=== PATIENT | female | born 1960 | race African-American/Black ===

== ENCOUNTER 2021-07-10 08:00 | Day surgery (SDC) | payer MEDICARE, MEDICAID, OTHER ==
[2021-07-10] MEDS ORDERED: Lidocaine 1% PF 5 ML VIAL ONE (08:36)
[2021-07-10] MEDS ORDERED: Sodium Bicarbonate 2.5 MEQ/5 ML VIAL ONE (08:37)
[2021-07-10 08:40] VITALS: BP 144/71
== END 2021-07-10 11:45 | disposition home or self-care (01) ==
LOC: CSHRAD 08:00
PROVIDERS: ATTEND Family Medicine
DX: G89.4 Chronic pain syndrome (principal); M96.1 Postlaminectomy syndrome, not elsewhere classified; M54.16 Radiculopathy, lumbar region; M51.9 Unspecified thoracic, thoracolumbar and lumbosacral intervertebral disc disorder
CPT/HCPCS: 62304; 72100; 72132

== ENCOUNTER 2021-11-18 11:27 | Outpatient (CLI) | payer MEDICARE, MEDICAID | END 2021-11-18 11:28 | disposition home or self-care (01) | LOC: CSHRAD 11:27 | PROVIDERS: ATTEND Neurological Surgery | DX: M48.061 Spinal stenosis, lumbar region without neurogenic claudication (principal); Z98.890 Other specified postprocedural states; M51.36 Other intervertebral disc degeneration, lumbar region | CPT/HCPCS: 72100 ==

== ENCOUNTER 2022-03-22 18:27 | Inpatient (IN) | payer MEDICARE, MEDICAID ==
[2022-03-22] MEDS ORDERED: Magnesium 2 GM/50 ML BAG (IN WATER) ONE (19:12)
[2022-03-22] MEDS ORDERED: methylPREDNISolone Sod Succ/PF 125 MG/2 ML VIAL ONE (19:12)
[2022-03-22 19:21] LABS: #Basophils 0.1 10x3/uL (0.0-0.2); #Eosinphils 0.4 10x3/uL (0.0-0.5); #Monocytes 0.9 10x3/uL (0.0-1.1); #Neutrophils 5.3 10x3/uL (1.5-8.4); %Basophils 0.6 % (0.0-2.0); %Eosinophils 4.7 % (0.0-6.0); %Lymphocytes 23.9 % (18.0-47.0); %Monocytes 10.5 % (0.0-10.0); %Neutrophils 59.7 % (40.0-75.0); Hemoglobin 11.7 g/dL (12.0-15.5); Mean Corpuscular HGB CONC 32.9 g/dL (32.0-36.0); Mean Corpuscular Hemoglobin 26.1 pg (27.0-33.0); Mean Corpuscular Volume 79.3 fl (81.6-98.3); Mean Platelet Volume 10.6 fl (7.4-10.4); Platelet Count 271 10x3/uL (150-450); RBC Distribution Width 16.4 % (11.5-14.5); Red Blood Cell (RBC) Count 4.49 10x6/uL (3.90-5.03); White Blood Cell (WBC) Count 8.8 10x3/uL (3.5-10.5)
[2022-03-22 19:31] LABS: ALT (SGPT) 15 U/L (8-55); AST (SGOT) 19 U/L (5-34); Alkaline Phosphatase 106 U/L (40-110); Anion Gap 14 mmol/L (10-20); BUN (Urea Nitrogen) 13 mg/dL (9.8-20.1); Bilirubin, Total 0.3 mg/dL (0.2-1.2); Calc. Creatinine Clearance 0 mL/min (70-130); Calcium 9.5 mg/dL (7.8-10.44); Carbon Dioxide 24 mmol/L (23-31); Chloride 105 mmol/L (98-107); Globulin 2.8 g/dL (2.4-3.5); Glucose 97 mg/dL (80-115); Potassium 3.6 mmol/L (3.5-5.1); Protein, Total 6.8 g/dL (5.8-8.1); Sodium 139 mmol/L (136-145)
[2022-03-22] MEDS ORDERED: Acetaminophen 500 MG TAB ONE (20:05)
[2022-03-22 20:58] LABS: SARS-CoV-2 NAA Rapid Test Not Detected (NotDetected)
[2022-03-22] MEDS ORDERED: Albuterol Sulfate 2.5 mg/3 ml Neb ONE (21:15)
[2022-03-22] MEDS ORDERED: Guaifenesin DM 100-10/5 ML UDCUP PO PRN (21:33)
[2022-03-22] MEDS ORDERED: Ondansetron PF 4 MG/2 ML Vial IVP PRN (21:33)
[2022-03-22] MEDS ORDERED: Acetaminophen 325 MG TAB PO PRN (21:33)
[2022-03-22] MEDS ORDERED: Calcium Carbonate 500 MG ChewTAB PO PRN (21:33)
[2022-03-22] MEDS ORDERED: Lisinopril 10 MG TAB PO SCH (21:45)
[2022-03-22] MEDS ORDERED: Potassium Chloride 20 MEQ TAB PO SCH (21:45)
[2022-03-22] MEDS: traMADol HCl 50 MG TAB PO PRN (23:50)
[2022-03-22] MEDS: Azithromycin 500 MG in Sodium Chloride 0.9% 250 ML 250 ML IVPB SCH (23:51)
[2022-03-23 00:59] VITALS: BMI 25.7
[2022-03-23] MEDS ORDERED: TYLENOL #4 PATIENT'S HOME MEDICATION PO PRN (01:40)
[2022-03-23] MEDS ORDERED: tiZANidine HCl 4 MG TAB PO PRN (01:41)
[2022-03-23] MEDS: methylPREDNISolone Sod Succ/PF 125 MG/2 ML VIAL IVP SCH ×4 (03:31→20:11)
[2022-03-23] MEDS: Acetaminophen/Codeine 30-300mg Tablet PO PRN ×2 (03:32→14:56)
[2022-03-23 05:15] LABS: Anion Gap 16 mmol/L (10-20); BUN (Urea Nitrogen) 15 mg/dL (9.8-20.1); Calc. Creatinine Clearance 60 mL/min (70-130); Calcium 9.4 mg/dL (7.8-10.44); Carbon Dioxide 21 mmol/L (23-31); Chloride 106 mmol/L (98-107); Glucose 151 mg/dL (80-115); Potassium 4.3 mmol/L (3.5-5.1); Sodium 139 mmol/L (136-145)
[2022-03-23] MEDS ORDERED: Dextrose 5% in Water 1,000 ML IV PRN (07:51)
[2022-03-23] MEDS ORDERED: Dextrose 50% Abboject 50 ML SYRINGE SLOW IVP PRN (07:51)
[2022-03-23] MEDS ORDERED: HumaLOG 300 UNITS/3 ML VIAL SC PRN (07:51)
[2022-03-23] MEDS: Mometasone/Formoterol 200/5 60 PUFF INH SCH ×2 (08:43→18:42)
[2022-03-23] MEDS ORDERED: Aripiprazole 2 MG TAB PO SCH (09:00)
[2022-03-23] MEDS: traMADol HCl 50 MG TAB PO PRN ×2 (09:40→20:09)
[2022-03-23] MEDS: Gabapentin 300 MG CAP PO SCH ×2 (09:40→20:11)
[2022-03-23] MEDS: Enoxaparin Sodium 40 MG/0.4 ML SYRINGE SC SCH (09:40)
[2022-03-23] MEDS: Amlodipine 5 MG TAB PO SCH (09:41)
[2022-03-23] MEDS: cloNIDine 0.1 MG TAB PO SCH ×2 (09:41→20:11)
[2022-03-23] MEDS: Benzonatate 100 MG CAP PO SCH ×3 (09:41→20:10)
[2022-03-23] MEDS: guaiFENesin ER 600 MG TAB PO SCH ×2 (09:41→20:10)
[2022-03-23] MEDS: Famotidine 20 MG TAB PO SCH ×2 (09:41→20:22)
[2022-03-23] MEDS: Multivitamin W/ Minerals 1 TAB PO SCH (09:41)
[2022-03-23] MEDS: Lisinopril 10 MG TAB PO SCH (09:42)
[2022-03-23] MEDS: Bupropion 100 MG SR TAB PO SCH (09:42)
[2022-03-23] MEDS: HumaLOG 300 UNITS/3 ML VIAL SC PRN (17:20)
[2022-03-23] MEDS: Aripiprazole 2 MG TAB PO SCH (20:10)
[2022-03-23] MEDS: HYDROcodone/Acetaminophen 5/325 mg Tablet PO PRN (20:53)
[2022-03-23] MEDS: buPROPion HCl 100 MG TAB PO SCH (20:53)
[2022-03-23] MEDS: tiZANidine HCl 4 MG TAB PO PRN (20:54)
[2022-03-23] MEDS: Azithromycin 500 MG in Sodium Chloride 0.9% 250 ML 250 ML IVPB SCH (21:35)
[2022-03-24] MEDS: methylPREDNISolone Sod Succ/PF 125 MG/2 ML VIAL IVP SCH ×4 (03:50→20:32)
[2022-03-24] MEDS: HYDROcodone/Acetaminophen 5/325 mg Tablet PO PRN ×2 (04:04→20:31)
[2022-03-24 05:04] LABS: Hemoglobin 11.1 g/dL (12.0-15.5); Mean Corpuscular HGB CONC 33.4 g/dL (32.0-36.0); Mean Corpuscular Hemoglobin 26.4 pg (27.0-33.0); Mean Corpuscular Volume 78.9 fl (81.6-98.3); Mean Platelet Volume 11.3 fl (7.4-10.4); Platelet Count 289 10x3/uL (150-450); RBC Distribution Width 16.8 % (11.5-14.5); Red Blood Cell (RBC) Count 4.21 10x6/uL (3.90-5.03); White Blood Cell (WBC) Count 21.7 10x3/uL (3.5-10.5)
[2022-03-24 05:11] LABS: Anion Gap 19 mmol/L (10-20); BUN (Urea Nitrogen) 20 mg/dL (9.8-20.1); Calc. Creatinine Clearance 57 mL/min (70-130); Calcium 9.3 mg/dL (7.8-10.44); Carbon Dioxide 20 mmol/L (23-31); Chloride 107 mmol/L (98-107); Glucose 155 mg/dL (80-115); Potassium 4.6 mmol/L (3.5-5.1); Sodium 141 mmol/L (136-145)
[2022-03-24 05:38] LABS: MDiff Complete? YES
[2022-03-24 05:41] LABS: Band 17 % (5-11); Eosinophils 1 % (0-10); Lymphocytes 6 % (21-51); Monocytes 1 % (0-10)
[2022-03-24 05:42] LABS: Platelet Morphology Comment Appears Adequate; RBC Morphology Normal
[2022-03-24 06:19] LABS: Neutrophil 75 % (42-75)
[2022-03-24] MEDS: Mometasone/Formoterol 200/5 60 PUFF INH SCH ×2 (06:54→19:05)
[2022-03-24] MEDS: Senokot S 8.6-50 MG TAB PO PRN ×2 (08:33→21:15)
[2022-03-24] MEDS: Multivitamin W/ Minerals 1 TAB PO SCH (08:33)
[2022-03-24] MEDS: Famotidine 20 MG TAB PO SCH (08:33)
[2022-03-24] MEDS: traMADol HCl 50 MG TAB PO PRN (08:33)
[2022-03-24] MEDS: tiZANidine HCl 4 MG TAB PO PRN (08:33)
[2022-03-24] MEDS: cloNIDine 0.1 MG TAB PO SCH ×2 (08:34→21:15)
[2022-03-24] MEDS: Lisinopril 10 MG TAB PO SCH (08:34)
[2022-03-24] MEDS: Amlodipine 5 MG TAB PO SCH (08:34)
[2022-03-24] MEDS: Benzonatate 100 MG CAP PO SCH ×3 (08:34→20:31)
[2022-03-24] MEDS: Gabapentin 300 MG CAP PO SCH ×2 (08:34→20:30)
[2022-03-24] MEDS: guaiFENesin ER 600 MG TAB PO SCH ×2 (08:35→20:30)
[2022-03-24] MEDS: Enoxaparin Sodium 40 MG/0.4 ML SYRINGE SC SCH (08:35)
[2022-03-24] MEDS: Bupropion 100 MG SR TAB PO SCH (08:35)
[2022-03-24] MEDS: buPROPion HCl 100 MG TAB PO SCH ×2 (08:35→20:31)
[2022-03-24] MEDS: Acetaminophen/Codeine 30-300mg Tablet PO PRN (13:54)
[2022-03-24] MEDS: Azithromycin 500 MG in Sodium Chloride 0.9% 250 ML 250 ML IVPB SCH (20:30)
[2022-03-24] MEDS ORDERED: traZODone HCl 50 MG TAB PO SCH (21:00)
[2022-03-24] MEDS: Aripiprazole 2 MG TAB PO SCH (21:15)
[2022-03-25] MEDS: methylPREDNISolone Sod Succ/PF 125 MG/2 ML VIAL IVP SCH ×2 (02:59→10:42)
[2022-03-25 05:11] LABS: Hemoglobin 11.4 g/dL (12.0-15.5); Mean Corpuscular Hemoglobin 26.3 pg (27.0-33.0); Mean Corpuscular Volume 77.2 fl (81.6-98.3); Mean Platelet Volume 10.8 fl (7.4-10.4); Platelet Count 285 10x3/uL (150-450); RBC Distribution Width 16.7 % (11.5-14.5); Red Blood Cell (RBC) Count 4.34 10x6/uL (3.90-5.03); White Blood Cell (WBC) Count 22.4 10x3/uL (3.5-10.5)
[2022-03-25 05:18] LABS: Anion Gap 16 mmol/L (10-20); BUN (Urea Nitrogen) 23 mg/dL (9.8-20.1); Calc. Creatinine Clearance 58 mL/min (70-130); Calcium 9.3 mg/dL (7.8-10.44); Carbon Dioxide 23 mmol/L (23-31); Chloride 106 mmol/L (98-107); Glucose 170 mg/dL (80-115); Potassium 4.3 mmol/L (3.5-5.1); Sodium 141 mmol/L (136-145)
[2022-03-25 05:34] LABS: MDiff Complete? YES
[2022-03-25 05:36] LABS: Band 12 % (5-11); Lymphocytes 3 % (21-51); Monocytes 4 % (0-10); Neutrophil 80 % (42-75); Platelet Morphology Comment Appears Adequate; RBC Morphology Normal; Reactive Lymphocytes 1 % (0-10)
[2022-03-25] MEDS: Mometasone/Formoterol 200/5 60 PUFF INH SCH ×2 (05:55→19:35)
[2022-03-25] MEDS: Acetaminophen/Codeine 30-300mg Tablet PO PRN ×2 (06:05→18:40)
[2022-03-25] MEDS ORDERED: Milk Of Magnesia 30 ML UDCUP PO SCH (10:30)
[2022-03-25] MEDS: Amlodipine 5 MG TAB PO SCH (10:38)
[2022-03-25] MEDS: Benzonatate 100 MG CAP PO SCH ×3 (10:39→21:14)
[2022-03-25] MEDS: Lisinopril 10 MG TAB PO SCH (10:39)
[2022-03-25] MEDS: Famotidine 20 MG TAB PO SCH (10:40)
[2022-03-25] MEDS: Gabapentin 300 MG CAP PO SCH ×2 (10:40→21:14)
[2022-03-25] MEDS: Bupropion 100 MG SR TAB PO SCH (10:40)
[2022-03-25] MEDS: Multivitamin W/ Minerals 1 TAB PO SCH (10:41)
[2022-03-25] MEDS: cloNIDine 0.1 MG TAB PO SCH ×2 (10:41→21:15)
[2022-03-25] MEDS: guaiFENesin ER 600 MG TAB PO SCH ×2 (10:41→21:15)
[2022-03-25] MEDS: buPROPion HCl 100 MG TAB PO SCH ×2 (10:42→21:15)
[2022-03-25] MEDS: Enoxaparin Sodium 40 MG/0.4 ML SYRINGE SC SCH (10:42)
[2022-03-25] MEDS: HYDROcodone/Acetaminophen 5/325 mg Tablet PO PRN (11:01)
[2022-03-25] MEDS ORDERED: predniSONE 20 MG TAB PO SCH (15:30)
[2022-03-25] MEDS: HumaLOG 300 UNITS/3 ML VIAL SC PRN (16:35)
[2022-03-25] MEDS: Azithromycin 500 MG in Sodium Chloride 0.9% 250 ML 250 ML IVPB SCH (21:13)
[2022-03-25] MEDS: Aripiprazole 2 MG TAB PO SCH (21:15)
[2022-03-25] MEDS: traMADol HCl 50 MG TAB PO PRN (22:15)
[2022-03-26] MEDS: Acetaminophen/Codeine 30-300mg Tablet PO PRN ×2 (00:11→10:30)
[2022-03-26 03:58] LABS: Hemoglobin 10.9 g/dL (12.0-15.5); Mean Corpuscular HGB CONC 32.9 g/dL (32.0-36.0); Mean Corpuscular Hemoglobin 25.9 pg (27.0-33.0); Mean Corpuscular Volume 78.6 fl (81.6-98.3); Mean Platelet Volume 11.1 fl (7.4-10.4); Platelet Count 294 10x3/uL (150-450); RBC Distribution Width 16.5 % (11.5-14.5); Red Blood Cell (RBC) Count 4.21 10x6/uL (3.90-5.03); White Blood Cell (WBC) Count 17.9 10x3/uL (3.5-10.5)
[2022-03-26 03:59] LABS: MDiff Complete? YES; Manual Diff?? YES
[2022-03-26 04:25] LABS: Anion Gap 16 mmol/L (10-20); BUN (Urea Nitrogen) 22 mg/dL (9.8-20.1); Calc. Creatinine Clearance 60 mL/min (70-130); Carbon Dioxide 26 mmol/L (23-31); Chloride 104 mmol/L (98-107); Glucose 134 mg/dL (80-115); Potassium 4.5 mmol/L (3.5-5.1); Sodium 141 mmol/L (136-145)
[2022-03-26 04:35] LABS: Band 3 % (5-11); Lymphocytes 6 % (21-51); Monocytes 3 % (0-10); Neutrophil 88 % (42-75)
[2022-03-26 04:36] LABS: Anisocytosis SLIGHT = 6-15 cells (100X) (0-5/hpf); Macrocytosis SLIGHT = 6-15 cells (100X) (0-5/hpf); Microcytosis SLIGHT = 6-15 cells (100X) (0-5/hpf); Platelet Morphology Comment Appears Adequate
[2022-03-26 04:37] LABS: Target Cells SLIGHT = 2-5 cells (100X) (0-1/hpf)
[2022-03-26] MEDS: Mometasone/Formoterol 200/5 60 PUFF INH SCH (06:48)
[2022-03-26] MEDS ORDERED: predniSONE 20 MG TAB PO SCH (08:00)
[2022-03-26] MEDS: Amlodipine 5 MG TAB PO SCH (10:12)
[2022-03-26] MEDS: Famotidine 20 MG TAB PO SCH (10:12)
[2022-03-26] MEDS: guaiFENesin ER 600 MG TAB PO SCH (10:13)
[2022-03-26] MEDS: Benzonatate 100 MG CAP PO SCH (10:13)
[2022-03-26] MEDS: cloNIDine 0.1 MG TAB PO SCH (10:13)
[2022-03-26] MEDS: Lisinopril 10 MG TAB PO SCH (10:16)
[2022-03-26] MEDS: Gabapentin 300 MG CAP PO SCH (10:17)
[2022-03-26] MEDS: Enoxaparin Sodium 40 MG/0.4 ML SYRINGE SC SCH (10:19)
[2022-03-26] MEDS: Multivitamin W/ Minerals 1 TAB PO SCH (10:20)
[2022-03-26] MEDS: buPROPion HCl 100 MG TAB PO SCH (10:28)
[2022-03-26] MEDS: Bupropion 100 MG SR TAB PO SCH (10:30)
[2022-03-26] MEDS: tiZANidine HCl 4 MG TAB PO PRN (10:46)
[2022-03-26 12:29] VITALS: BP 181/84
[2022-03-26 12:52] VITALS: TEMP 96.2
== END 2022-03-26 14:32 | disposition home or self-care (01) | DRG 202 ==
LOC: CSHERS 18:27 → CSHTELE 23:18 → OBSVTOIN 03-24 13:37
PROVIDERS: ADMIT Student in an Organized Health Care Education/Training Program; ATTEND Internal Medicine
DX: J45.901 Unspecified asthma with (acute) exacerbation (principal); J44.1 Chronic obstructive pulmonary disease with (acute) exacerbation; F31.9 Bipolar disorder, unspecified; G89.29 Other chronic pain; I10 Essential (primary) hypertension; F41.9 Anxiety disorder, unspecified; D50.9 Iron deficiency anemia, unspecified; F12.10 Cannabis abuse, uncomplicated; M19.90 Unspecified osteoarthritis, unspecified site; Z20.822 Contact with and (suspected) exposure to COVID-19; R73.9 Hyperglycemia, unspecified; K59.00 Constipation, unspecified; Z88.1 Allergy status to other antibiotic agents; Z79.51 Long term (current) use of inhaled steroids; Z79.899 Other long term (current) drug therapy; Z87.891 Personal history of nicotine dependence; Z90.49 Acquired absence of other specified parts of digestive tract; Z98.890 Other specified postprocedural states
CPT/HCPCS: 36415; 36416; 71045; 80048; 80053; 84484; 85025; 87070; 87077; 87186; 87205; 93005; 94640; 94664; 94760; 96365; 96375; J0456; J1650; J1815; J2930; J3475; J7050; J7512; J7611; J7620

== ENCOUNTER 2022-06-29 13:50 | Emergency (ER) | payer OTHER, MEDICAID ==
[2022-06-29] MEDS ORDERED: Cyclobenzaprine 10 MG TAB ONE (14:50)
[2022-06-29] MEDS ORDERED: Ketorolac Tromethamine 30 MG/ML VIAL ONE (14:50)
== END 2022-06-29 16:20 | disposition home or self-care (01) ==
LOC: CSHERS 13:50
DX: G89.11 Acute pain due to trauma (principal); M54.2 Cervicalgia; I10 Essential (primary) hypertension; J44.9 Chronic obstructive pulmonary disease, unspecified; F17.200 Nicotine dependence, unspecified, uncomplicated
CPT/HCPCS: 70450; 72125; 96372; J1885

== ENCOUNTER 2022-07-11 20:50 | Emergency (ER) | payer OTHER ==
[2022-07-11] MEDS ORDERED: Ondansetron PF 4 MG/2 ML Vial ONE (21:36)
[2022-07-11 21:56] LABS: Hemoglobin 12.1 g/dL (12.0-15.5); Mean Corpuscular HGB CONC 33.1 g/dL (32.0-36.0); Mean Corpuscular Hemoglobin 25.5 pg (27.0-33.0); Mean Corpuscular Volume 77.1 fl (81.6-98.3); Mean Platelet Volume 10.1 fl (7.4-10.4); Platelet Count 272 10x3/uL (150-450); RBC Distribution Width 15.3 % (11.5-14.5); Red Blood Cell (RBC) Count 4.75 10x6/uL (3.90-5.03); White Blood Cell (WBC) Count 4.7 10x3/uL (3.5-10.5)
[2022-07-11 22:12] LABS: MDiff Complete? YES
[2022-07-11 22:17] LABS: ALT (SGPT) 11 U/L (8-55); AST (SGOT) 17 U/L (5-34); Alkaline Phosphatase 89 U/L (40-110); Anion Gap 14 mmol/L (10-20); BUN (Urea Nitrogen) 10 mg/dL (9.8-20.1); Band 17 % (5-11); Bilirubin, Total 0.2 mg/dL (0.2-1.2); Calc. Creatinine Clearance 0 mL/min (70-130); Calcium 9.6 mg/dL (7.8-10.44); Carbon Dioxide 26 mmol/L (23-31); Chloride 100 mmol/L (98-107); Estimated GFR 40; Globulin 3.1 g/dL (2.4-3.5); Glucose 104 mg/dL (80-115); Lipase 48 U/L (8-78); Lymphocytes 19 % (21-51); Monocytes 17 % (0-10); Neutrophil 45 % (42-75); Protein, Total 7.1 g/dL (5.8-8.1); Reactive Lymphocytes 1 % (0-10); Sodium 136 mmol/L (136-145)
[2022-07-11 22:19] LABS: Platelet Morphology Comment Appears Adequate; RBC Morphology Normal
[2022-07-11 22:42] LABS: Bilirubin Neg (Negative); Blood, Urine Negative (Negative); Clarity Clear (Clear); Glucose, Urine (Dipstick) Normal (Negative); Ketone, Urine 5 mg/dL (Negative); Leukocyte Negative (Negative); Nitrite Negative (Negative); Protein, Urine (Dipstick) 100 mg/dl (Neg-Trace); Specific Gravity, Urine 1.015 (1.002-1.036); Urobilinogen Normal mg/dL (Less than 2)
[2022-07-11 22:51] LABS: RBC/HPF 0-3 HPF (0-3)
[2022-07-11 22:52] LABS: Bacteria/HPF None Seen HPF (None Seen); Squamous Epithelial 0-3 HPF (0-3); WBC/HPF 0-3 HPF (0-3)
== END 2022-07-11 23:19 | disposition home or self-care (01) ==
LOC: CSHERS 20:50
DX: R11.2 Nausea with vomiting, unspecified (principal); R53.1 Weakness; I10 Essential (primary) hypertension; J44.9 Chronic obstructive pulmonary disease, unspecified; F17.210 Nicotine dependence, cigarettes, uncomplicated; Z79.899 Other long term (current) drug therapy
CPT/HCPCS: 80053; 81003; 81015; 83690; 85025; 96361; 96374; J2405

== ENCOUNTER 2022-08-22 11:15 | Emergency (ER) | payer OTHER ==
[2022-08-22] MEDS ORDERED: Ketorolac Tromethamine 30 MG/ML VIAL ONE (11:33)
[2022-08-22] MEDS ORDERED: Cyclobenzaprine 10 MG TAB ONE (11:33)
== END 2022-08-22 12:02 | disposition home or self-care (01) ==
LOC: CSHERS 11:15
DX: M54.12 Radiculopathy, cervical region (principal); I10 Essential (primary) hypertension; J44.9 Chronic obstructive pulmonary disease, unspecified; Z87.891 Personal history of nicotine dependence
CPT/HCPCS: 96372; 99283; J1885

== ENCOUNTER 2022-10-21 07:40 | Outpatient (CLI) | payer MEDICARE, OTHER ==
[2022-10-21] MEDS ORDERED: Sodium Bicarbonate 2.5 MEQ/5 ML VIAL ONE (08:15)
[2022-10-21] MEDS ORDERED: Lidocaine 1% PF 5 ML VIAL ONE (08:16)
[2022-10-21 10:05] VITALS: BP 140/66; TEMP 97.7
[2022-10-24] MEDS ORDERED: FLU VACC QS2022-23(6MOS UP)/PF 60 MCG/0.5 ML SYRINGE IM ONE (10:45)
== END 2022-10-21 09:55 | disposition home or self-care (01) ==
LOC: CSHRAD 07:40
PROVIDERS: ATTEND Neurological Surgery
DX: M54.12 Radiculopathy, cervical region (principal); Z98.1 Arthrodesis status; M47.812 Spondylosis without myelopathy or radiculopathy, cervical region
CPT/HCPCS: 62302; 72126